=== PATIENT | female | born 1940 | race African-American/Black ===

== ENCOUNTER 2021-03-17 14:05 | Inpatient (IN) | payer MEDICARE, OTHER ==
[2021-03-17 16:09] LABS: Bilirubin Negative (Negative); Blood, Urine Negative (Negative); Clarity Clear (Clear); Glucose, Urine (Dipstick) Normal (Negative); Ketone, Urine Negative (Negative); Leukocyte 250 Leu/uL (Negative); Nitrite Negative (Negative); Protein, Urine (Dipstick) 10 mg/dL (Neg-Trace); RBC/HPF 0-3 HPF (0-3); Specific Gravity, Urine 1.013 (1.002-1.036); Squamous Epithelial 0-3 HPF (0-3); Urobilinogen Normal mg/dL (Less than 2)
[2021-03-17 16:13] LABS: Hemoglobin 10.8 g/dL (12.0-16.0); Mean Corpuscular HGB CONC 32.6 g/dL (32.0-36.0); Mean Corpuscular Hemoglobin 29.5 pg (27.0-31.0); Mean Corpuscular Volume 90.7 fL (78.0-98.0); Mean Platelet Volume 7.8 fL (7.4-10.4); Platelet Count 323 thou/uL (130-400); RBC Distribution Width 13.5 % (11.5-14.5); Red Blood Cell (RBC) Count 3.68 mill/uL (4.20-5.40); White Blood Cell (WBC) Count 5.9 thou/uL (4.8-10.8)
[2021-03-17 16:15] LABS: Bacteria/HPF 1+ HPF (None Seen)
[2021-03-17 16:31] LABS: ALT (SGPT) 32 U/L (8-55); AST (SGOT) 35 U/L (5-34); Albumin 4.1 g/dL (3.4-4.8); Alkaline Phosphatase 102 U/L (40-110); Anion Gap 14 mmol/L (10-20); BUN (Urea Nitrogen) 27 mg/dL (9.8-20.1); Bilirubin, Total 0.3 mg/dL (0.2-1.2); Calc. Creatinine Clearance 0 mL/min (70-130); Carbon Dioxide 24 mmol/L (23-31); Chloride 103 mmol/L (98-107); Globulin 4.4 g/dL (2.4-3.5); Glucose 61 mg/dL (83-110); Potassium 3.6 mmol/L (3.5-5.1); Protein, Total 8.5 g/dL (5.8-8.1); Sodium 137 mmol/L (136-145)
[2021-03-17 16:36] LABS: Band 9 % (5-11); Lymphocytes 23 % (21-51); MDiff Complete? YES; Monocytes 17 % (0-10); Neutrophil 51 % (42-75); Platelet Morphology Comment Appears Adequate; RBC Morphology Normal
[2021-03-17 16:40] LABS: Calcium 12.1 mg/dL (7.8-10.44)
[2021-03-17] MEDS ORDERED: cefTRIAXone\\ROCEPHIN 1 GM VIAL ONE (16:50)
[2021-03-17] MEDS ORDERED: Acetaminophen 325 MG TAB PO PRN (19:00)
[2021-03-17] MEDS ORDERED: Ondansetron PF 4 MG/2 ML Vial IVP PRN (19:00)
[2021-03-17] MEDS ORDERED: Dextrose 50% Abboject 50 ML SYRINGE SLOW IVP PRN (19:04)
[2021-03-17] MEDS ORDERED: Dextrose 5% in Water 1,000 ML IV PRN (19:04)
[2021-03-17] MEDS: Dextrose 5 %-0.45 % NaCl 1,000 ML IV SCH (19:58)
[2021-03-17 20:46] VITALS: BMI 23.6
[2021-03-17] MEDS ORDERED: Insulin Regular 300 UNITS/3 ML VIAL ONE (21:14)
[2021-03-17] MEDS: HumaLOG 300 UNITS/3 ML VIAL SC PRN (21:21)
[2021-03-18] MEDS: Dextrose 5 %-0.45 % NaCl 1,000 ML IV SCH (05:11)
[2021-03-18 05:17] LABS: Hemoglobin 9.8 g/dL (12.0-16.0); Mean Corpuscular HGB CONC 33.7 g/dL (32.0-36.0); Mean Corpuscular Hemoglobin 30.7 pg (27.0-31.0); Mean Corpuscular Volume 91.1 fL (78.0-98.0); Mean Platelet Volume 8.1 fL (7.4-10.4); Platelet Count 284 thou/uL (130-400); RBC Distribution Width 13.5 % (11.5-14.5); White Blood Cell (WBC) Count 6.1 thou/uL (4.8-10.8)
[2021-03-18 05:19] LABS: Hemoglobin A1c 5.1 % (4.0-6.0)
[2021-03-18 05:35] LABS: Anion Gap 13 mmol/L (10-20); BUN (Urea Nitrogen) 22 mg/dL (9.8-20.1); Calc. Creatinine Clearance 22 mL/min (70-130); Calcium 10.8 mg/dL (7.8-10.44); Carbon Dioxide 21 mmol/L (23-31); Chloride 108 mmol/L (98-107); Glucose 228 mg/dL (83-110); Potassium 3.9 mmol/L (3.5-5.1); Sodium 138 mmol/L (136-145)
[2021-03-18 05:45] LABS: Band 13 % (5-11); Eosinophils 4 % (0-10); Lymphocytes 27 % (21-51); MDiff Complete? YES; Monocytes 15 % (0-10); Neutrophil 41 % (42-75)
[2021-03-18] MEDS ORDERED: HumaLOG 300 UNITS/3 ML VIAL ONE (11:37)
[2021-03-18] MEDS: HumaLOG 300 UNITS/3 ML VIAL SC PRN (11:40)
[2021-03-18] MEDS ORDERED: Amlodipine 5 MG TAB PO SCH (15:30)
[2021-03-18] MEDS: Sodium Chloride 0.9% 1,000 ML IV SCH (21:14)
[2021-03-19] MEDS ORDERED: hydrALAZINE 20 MG/ML VIAL SLOW IVP PRN (05:14)
[2021-03-19 06:50] LABS: SARS-CoV-2 PCR by NAA Not Detected (NotDetected)
[2021-03-19] MEDS: HumaLOG 300 UNITS/3 ML VIAL SC PRN (11:32)
[2021-03-19] MEDS: Sodium Chloride 0.9% 1,000 ML IV SCH (11:39)
[2021-03-19 12:03] VITALS: BP 138/77; TEMP 98.3
[2021-03-19] MEDS ORDERED: Latanoprost 0.005% Ophth Soln 2.5 ml Bottle EA EYE SCH (21:00)
== END 2021-03-19 12:02 | disposition home or self-care (01) | DRG 638 ==
LOC: ERS 14:05 → ERHOLD 17:36 → T4-A 03-18 12:22 → OBSVTOIN 03-19 11:31
PROVIDERS: ADMIT Internal Medicine; ATTEND Internal Medicine
DX: E11.649 Type 2 diabetes mellitus with hypoglycemia without coma (principal); N39.0 Urinary tract infection, site not specified; E11.22 Type 2 diabetes mellitus with diabetic chronic kidney disease; N18.30 Chronic kidney disease, stage 3 unspecified; I12.9 Hypertensive chronic kidney disease with stage 1 through stage 4 chronic kidney disease, or unspecified chronic kidney disease; E87.8 Other disorders of electrolyte and fluid balance, not elsewhere classified; Z20.822 Contact with and (suspected) exposure to COVID-19; N17.9 Acute kidney failure, unspecified; E83.52 Hypercalcemia; Z90.710 Acquired absence of both cervix and uterus; Z91.14 Patient's other noncompliance with medication regimen; Z79.899 Other long term (current) drug therapy
CPT/HCPCS: 36415; 36416; 80048; 80053; 81003; 81015; 82330; 83036; 83970; 85025; 93005; 94760; 96365; 96375; G0378; J0360; J0696; J1815; U0003; U0005

== ENCOUNTER 2021-09-09 10:08 | Inpatient (IN) | payer MEDICARE ==
[2021-09-09 11:20] LABS: Hemoglobin 10.5 g/dL (12.0-16.0); Mean Corpuscular HGB CONC 33.5 g/dL (32.0-36.0); Mean Corpuscular Hemoglobin 29.3 pg (27.0-31.0); Mean Corpuscular Volume 87.6 fL (78.0-98.0); Mean Platelet Volume 8.6 fL (7.4-10.4); Platelet Count 244 thou/uL (130-400); RBC Distribution Width 14.4 % (11.5-14.5); Red Blood Cell (RBC) Count 3.57 mill/uL (4.20-5.40); White Blood Cell (WBC) Count 6.2 thou/uL (4.8-10.8)
[2021-09-09 11:36] LABS: Acetaminophen Less than 6.0 mcg/mL (10.0-30.0); Alcohol Less than 10 mg/dL (Less than 10); Salicylate Less than 8.0 mg/dL (15.0-30.0)
[2021-09-09 11:37] LABS: ALT (SGPT) 24 U/L (8-55); AST (SGOT) 31 U/L (5-34); Albumin 3.7 g/dL (3.4-4.8); Alkaline Phosphatase 148 U/L (40-110); Anion Gap 17 mmol/L (10-20); BUN (Urea Nitrogen) 37 mg/dL (9.8-20.1); Bilirubin, Total 0.7 mg/dL (0.2-1.2); CK (CPK) 63 U/L (29-168); Calc. Creatinine Clearance 0 mL/min (70-130); Carbon Dioxide 22 mmol/L (23-31); Chloride 101 mmol/L (98-107); Globulin 4.3 g/dL (2.4-3.5); Glucose 103 mg/dL (83-110); Magnesium 1.4 mg/dL (1.6-2.6); Potassium 3.3 mmol/L (3.5-5.1); Sodium 137 mmol/L (136-145)
[2021-09-09 11:45] LABS: Band 5 % (5-11); Eosinophils 2 % (0-10); Lymphocytes 19 % (21-51); MDiff Complete? YES; Monocytes 11 % (0-10); Neutrophil 61 % (42-75); Platelet Morphology Comment Appears Adequate; Polychromasia SLIGHT = 2-3 cells (100X) (0-2/hpf)
[2021-09-09 11:47] LABS: Calcium 15.6 mg/dL (7.8-10.44)
[2021-09-09 11:56] LABS: CKMB 2.9 ng/mL (0-6.6)
[2021-09-09 12:11] LABS: Bacteria/HPF None Seen HPF (None Seen); Bilirubin Negative (Negative); Blood, Urine Negative (Negative); Clarity Clear (Clear); Glucose, Urine (Dipstick) Normal (Negative); Ketone, Urine Negative (Negative); Leukocyte Negative Leu/uL (Negative); Nitrite Negative (Negative); Protein, Urine (Dipstick) 30 mg/dL (Neg-Trace); RBC/HPF 0-3 HPF (0-3); Specific Gravity, Urine 1.013 (1.002-1.036); Squamous Epithelial None Seen HPF (0-3); Urobilinogen Normal mg/dL (Less than 2); WBC/HPF 0-3 HPF (0-3)
[2021-09-09 12:16] LABS: Amphetamine Not Detected (NotDetected); Barbiturates Screen Not Detected (NotDetected); Benzodiazepine Screen Not Detected (NotDetected); Cocaine Metabolite Screen Not Detected (NotDetected); Methadone Not Detected (NotDetected); Methamphetamine Not Detected (NotDetected); Opiate Screen Not Detected (NotDetected); Oxycodone Screen Not Detected (NotDetected); Phencyclidine (PCP) Not Detected (NotDetected); THC/Cannabinoid Screen Not Detected (NotDetected); Tricyclic Screen Not Detected (NotDetected)
[2021-09-09] MEDS ORDERED: Calcitonin,Synthetic 200 UNITS/ML MDV IM SCH (12:30)
[2021-09-09] MEDS ORDERED: Dextrose 5% in Water 1,000 ML IV PRN (14:26)
[2021-09-09] MEDS ORDERED: Dextrose 50% Abboject 50 ML SYRINGE SLOW IVP PRN (14:26)
[2021-09-09] MEDS ORDERED: Acetaminophen 650 MG Suppository PR PRN (14:26)
[2021-09-09] MEDS: Heparin 5,000 UNITS/ML VIAL SC SCH ×2 (16:04→20:39)
[2021-09-09] MEDS ORDERED: Magnesium 2 GM/50 ML 2 GM in Premix Bag 1 BAG IVPB SCH (17:00)
[2021-09-09] MEDS ORDERED: Potassium Chloride 20 MEQ TAB PO SCH (17:00)
[2021-09-09] MEDS ORDERED: Furosemide 40 MG/4 ML VIAL SLOW IVP SCH (17:00)
[2021-09-09 17:56] LABS: Troponin I 0.035 ng/mL (< 0.028)
[2021-09-09] MEDS: hydrALAZINE 20 MG/ML VIAL SLOW IVP PRN (18:00)
[2021-09-09] MEDS: Lactated Ringer's 1,000 ML IV SCH (18:01)
[2021-09-09] MEDS ORDERED: Ondansetron PF 4 MG/2 ML Vial IVP PRN (19:10)
[2021-09-09] MEDS ORDERED: Ondansetron ODT 8 MG TAB SL PRN (19:10)
[2021-09-09] MEDS ORDERED: Zoledronic Acid 4 MG in Sodium Chloride 0.9% 100 ML IVPB SCH (19:30)
[2021-09-09 19:41] LABS: SARS-CoV-2 NAA Rapid Test Not Detected (NotDetected)
[2021-09-10] MEDS: hydrALAZINE 20 MG/ML VIAL SLOW IVP PRN ×2 (02:08→18:17)
[2021-09-10 03:42] LABS: #Monocytes 0.7 thou/uL (0.11-0.59); #Neutrophils 6.7 thou/uL (1.40-6.50); %Basophils 0.3 % (0.0-1.0); %Eosinophils 0.1 % (0.0-10.0); %Lymphocytes 11.8 % (21.0-51.0); %Monocytes 8.5 % (0.0-10.0); %Neutrophils 79.4 % (42.0-75.0); Hemoglobin 10.5 g/dL (12.0-16.0); Mean Corpuscular Hemoglobin 29.7 pg (27.0-31.0); Mean Corpuscular Volume 87.4 fL (78.0-98.0); Mean Platelet Volume 8.7 fL (7.4-10.4); Platelet Count 261 thou/uL (130-400); RBC Distribution Width 14.5 % (11.5-14.5); Red Blood Cell (RBC) Count 3.54 mill/uL (4.20-5.40); White Blood Cell (WBC) Count 8.4 thou/uL (4.8-10.8)
[2021-09-10 04:08] LABS: ALT (SGPT) 20 U/L (8-55); AST (SGOT) 28 U/L (5-34); Albumin 3.5 g/dL (3.4-4.8); Alkaline Phosphatase 141 U/L (40-110); Anion Gap 19 mmol/L (10-20); BUN (Urea Nitrogen) 34 mg/dL (9.8-20.1); Bilirubin, Total 0.7 mg/dL (0.2-1.2); Calc. Creatinine Clearance 13 mL/min (70-130); Carbon Dioxide 21 mmol/L (23-31); Chloride 102 mmol/L (98-107); Globulin 4.2 g/dL (2.4-3.5); Glucose 146 mg/dL (83-110); Magnesium 2.1 mg/dL (1.6-2.6); Potassium 3.6 mmol/L (3.5-5.1); Protein, Total 7.7 g/dL (5.8-8.1); Sodium 138 mmol/L (136-145)
[2021-09-10] MEDS: Lactated Ringer's 1,000 ML IV SCH ×2 (08:13→16:23)
[2021-09-10] MEDS: Heparin 5,000 UNITS/ML VIAL SC SCH ×3 (08:13→20:02)
[2021-09-10] MEDS ORDERED: Amlodipine 5 MG TAB PO SCH ×2 (09:45)
[2021-09-10] MEDS: ADMIXTURE FEE SC SCH (11:35)
[2021-09-10] MEDS: CALCITONIN SALMON SYNTHETIC SC SCH (11:35)
[2021-09-10] MEDS: Calcitonin,Synthetic 200 UNITS/ML MDV SC SCH (13:07)
[2021-09-10 14:33] LABS: Phosphorus 2.9 mg/dL (2.3-4.7)
[2021-09-10 17:10] LABS: Reference Lab Name LABCORP
[2021-09-10] MEDS: Latanoprost 0.005% Ophth Soln 2.5 ml Bottle EA EYE SCH (20:03)
[2021-09-11] MEDS: Lactated Ringer's 1,000 ML IV SCH ×3 (02:55→20:24)
[2021-09-11] MEDS: Calcitonin,Synthetic 200 UNITS/ML MDV SC SCH (07:22)
[2021-09-11] MEDS: Heparin 5,000 UNITS/ML VIAL SC SCH ×3 (07:22→20:25)
[2021-09-11] MEDS: Amlodipine 10 MG TAB PO SCH (07:24)
[2021-09-11] MEDS ORDERED: Amlodipine 5 MG TAB PO SCH (09:00)
[2021-09-11 10:24] LABS: Anion Gap 14 mmol/L (10-20); BUN (Urea Nitrogen) 31 mg/dL (9.8-20.1); Calc. Creatinine Clearance 15 mL/min (70-130); Carbon Dioxide 24 mmol/L (23-31); Chloride 103 mmol/L (98-107); Glucose 94 mg/dL (83-110); Magnesium 1.5 mg/dL (1.6-2.6); Phosphorus 2.6 mg/dL (2.3-4.7); Potassium 3.5 mmol/L (3.5-5.1); Sodium 137 mmol/L (136-145)
[2021-09-11] MEDS: ADMIXTURE FEE SC SCH (10:47)
[2021-09-11] MEDS: CALCITONIN SALMON SYNTHETIC SC SCH (10:47)
[2021-09-11] MEDS: Furosemide 20 MG/2 ML VIAL SLOW IVP SCH (10:48)
[2021-09-11 10:49] LABS: Calcium 13.7 mg/dL (7.8-10.44)
[2021-09-11 19:36] LABS: A/G Ratio 0.8 (0.7-1.7); Albumin 3.2 g/dL (2.9-4.4); Alpha 1 0.3 g/dL (0.0-0.4); Alpha 2 0.7 g/dL (0.4-1.0); Beta 1.3 g/dL (0.7-1.3); Gamma 1.6 g/dL (0.4-1.8); M-Spike Not Observed g/dL (Not Observed)
[2021-09-11] MEDS: Latanoprost 0.005% Ophth Soln 2.5 ml Bottle EA EYE SCH (20:25)
[2021-09-12 05:37] LABS: Anion Gap 14 mmol/L (10-20); BUN (Urea Nitrogen) 31 mg/dL (9.8-20.1); Calc. Creatinine Clearance 15 mL/min (70-130); Carbon Dioxide 22 mmol/L (23-31); Chloride 102 mmol/L (98-107); Glucose 83 mg/dL (83-110); Potassium 3.3 mmol/L (3.5-5.1); Sodium 135 mmol/L (136-145)
[2021-09-12] MEDS ORDERED: CALCITONIN SALMON SYNTHETIC SC SCH (09:00)
[2021-09-12] MEDS ORDERED: PRE FILLED SC SCH (09:00)
[2021-09-12] MEDS: Potassium Chloride 20 MEQ in Premix Bag 1 BAG IVPB SCH ×2 (10:14→14:36)
[2021-09-12] MEDS: Heparin 5,000 UNITS/ML VIAL SC SCH ×3 (10:15→21:22)
[2021-09-12] MEDS: Furosemide 20 MG/2 ML VIAL SLOW IVP SCH (10:15)
[2021-09-12] MEDS: Amlodipine 10 MG TAB PO SCH (10:16)
[2021-09-12] MEDS: Lactated Ringer's 1,000 ML IV SCH ×2 (11:04→21:22)
[2021-09-12] MEDS: hydrALAZINE 20 MG/ML VIAL SLOW IVP PRN (15:39)
[2021-09-12] MEDS: Latanoprost 0.005% Ophth Soln 2.5 ml Bottle EA EYE SCH (21:22)
[2021-09-13 05:40] LABS: ALT (SGPT) 19 U/L (8-55); AST (SGOT) 29 U/L (5-34); Albumin 3.1 g/dL (3.4-4.8); Alkaline Phosphatase 117 U/L (40-110); Anion Gap 16 mmol/L (10-20); BUN (Urea Nitrogen) 33 mg/dL (9.8-20.1); Bilirubin, Total 0.6 mg/dL (0.2-1.2); Calc. Creatinine Clearance 15 mL/min (70-130); Carbon Dioxide 21 mmol/L (23-31); Chloride 103 mmol/L (98-107); Glucose 66 mg/dL (83-110); Magnesium 1.3 mg/dL (1.6-2.6); Phosphorus 2.9 mg/dL (2.3-4.7); Potassium 3.7 mmol/L (3.5-5.1); Protein, Total 7.1 g/dL (5.8-8.1); Sodium 136 mmol/L (136-145)
[2021-09-13 05:47] LABS: Calcium 12.4 mg/dL (7.8-10.44)
[2021-09-13] MEDS ORDERED: Magnesium 2 GM/50 ML 2 GM in Premix Bag 1 BAG IVPB SCH (09:00)
[2021-09-13] MEDS ORDERED: Magnesium Sulfate 2 GM in Sodium Chloride 0.9% 100 ML IVPB SCH (09:00)
[2021-09-13] MEDS: Amlodipine 10 MG TAB PO SCH (09:40)
[2021-09-13] MEDS: Furosemide 20 MG/2 ML VIAL SLOW IVP SCH (09:40)
[2021-09-13] MEDS: Heparin 5,000 UNITS/ML VIAL SC SCH ×3 (09:40→20:20)
[2021-09-13] MEDS: Lactated Ringer's 1,000 ML IV SCH ×2 (10:09→20:20)
[2021-09-13] MEDS: Calcitonin,Synthetic 200 UNITS/ML MDV SC SCH (10:18)
[2021-09-13 10:43] LABS: Band 7 % (5-11); Eosinophils 2 % (0-10); Hemoglobin 11.1 g/dL (12.0-16.0); Lymphocytes 17 % (21-51); MDiff Complete? YES; Mean Corpuscular HGB CONC 33.6 g/dL (32.0-36.0); Mean Corpuscular Hemoglobin 29.9 pg (27.0-31.0); Mean Corpuscular Volume 89.1 fL (78.0-98.0); Mean Platelet Volume 8.3 fL (7.4-10.4); Monocytes 9 % (0-10); Neutrophil 65 % (42-75); Platelet Count 241 thou/uL (130-400); RBC Distribution Width 14.7 % (11.5-14.5); White Blood Cell (WBC) Count 11.2 thou/uL (4.8-10.8)
[2021-09-13] MEDS: Latanoprost 0.005% Ophth Soln 2.5 ml Bottle EA EYE SCH (20:20)
[2021-09-14] MEDS: Furosemide 20 MG/2 ML VIAL SLOW IVP SCH (09:44)
[2021-09-14] MEDS: Lactated Ringer's 1,000 ML IV SCH ×2 (09:44→21:11)
[2021-09-14] MEDS: Amlodipine 10 MG TAB PO SCH (09:44)
[2021-09-14] MEDS: Heparin 5,000 UNITS/ML VIAL SC SCH ×3 (09:44→21:04)
[2021-09-14] MEDS: Calcitonin,Synthetic 200 UNITS/ML MDV SC SCH (09:45)
[2021-09-14 17:27] LABS: ALT (SGPT) 21 U/L (8-55); AST (SGOT) 28 U/L (5-34); Albumin 3.2 g/dL (3.4-4.8); Alkaline Phosphatase 131 U/L (40-110); Anion Gap 14 mmol/L (10-20); BUN (Urea Nitrogen) 33 mg/dL (9.8-20.1); Bilirubin, Total 0.4 mg/dL (0.2-1.2); Calc. Creatinine Clearance 17 mL/min (70-130); Carbon Dioxide 24 mmol/L (23-31); Chloride 98 mmol/L (98-107); Globulin 4.1 g/dL (2.4-3.5); Glucose 99 mg/dL (83-110); Magnesium 1.5 mg/dL (1.6-2.6); Potassium 3.4 mmol/L (3.5-5.1); Protein, Total 7.3 g/dL (5.8-8.1); Sodium 133 mmol/L (136-145)
[2021-09-14 17:37] LABS: Calcium 13.2 mg/dL (7.8-10.44)
[2021-09-14] MEDS ORDERED: Magnesium Sulfate 2 GM in Sodium Chloride 0.9% 100 ML IVPB SCH (17:45)
[2021-09-14] MEDS ORDERED: Potassium Chloride 20 MEQ TAB PO SCH (17:45)
[2021-09-14] MEDS ORDERED: Magnesium 2 GM/50 ML 2 GM in Premix Bag 1 BAG IVPB SCH (18:00)
[2021-09-14] MEDS: Latanoprost 0.005% Ophth Soln 2.5 ml Bottle EA EYE SCH (22:09)
[2021-09-15 05:02] LABS: Phosphorus 2.7 mg/dL (2.3-4.7)
[2021-09-15 05:07] LABS: ALT (SGPT) 23 U/L (8-55); AST (SGOT) 29 U/L (5-34); Albumin 3.1 g/dL (3.4-4.8); Alkaline Phosphatase 128 U/L (40-110); Anion Gap 11 mmol/L (10-20); BUN (Urea Nitrogen) 32 mg/dL (9.8-20.1); Bilirubin, Total 0.4 mg/dL (0.2-1.2); Calc. Creatinine Clearance 16 mL/min (70-130); Carbon Dioxide 26 mmol/L (23-31); Chloride 101 mmol/L (98-107); Globulin 3.9 g/dL (2.4-3.5); Glucose 104 mg/dL (83-110); Potassium 3.8 mmol/L (3.5-5.1); Sodium 134 mmol/L (136-145)
[2021-09-15 05:18] LABS: Calcium 12.9 mg/dL (7.8-10.44)
[2021-09-15] MEDS: Furosemide 20 MG/2 ML VIAL SLOW IVP SCH (08:35)
[2021-09-15] MEDS: Amlodipine 10 MG TAB PO SCH (08:36)
[2021-09-15] MEDS: Lactated Ringer's 1,000 ML IV SCH ×2 (08:39→17:55)
[2021-09-15] MEDS: Heparin 5,000 UNITS/ML VIAL SC SCH ×3 (08:42→20:20)
[2021-09-15] MEDS ORDERED: PRE FILLED SC SCH (09:00)
[2021-09-15] MEDS ORDERED: CALCITONIN SALMON SYNTHETIC SC SCH (09:00)
[2021-09-15 18:37] LABS: Albumin-Ur 50.1 % (.); Alpha 1 - Ur 6.3 % (.); Alpha 2 - Ur 14.2 % (.); Beta-Ur 18.6 % (.); Gamma-Ur 10.9 % (.); M-Spike,% Not Observed % (Not Observed); Protein, Urine 22.9 mg/dL (Not Estab.)
[2021-09-15] MEDS: Latanoprost 0.005% Ophth Soln 2.5 ml Bottle EA EYE SCH (20:20)
[2021-09-16] MEDS ORDERED: Magnevist 469MG/ML 20 ML VIAL ONE (08:55)
[2021-09-16] MEDS: Amlodipine 10 MG TAB PO SCH (09:32)
[2021-09-16] MEDS: Furosemide 20 MG/2 ML VIAL SLOW IVP SCH (09:33)
[2021-09-16] MEDS: Heparin 5,000 UNITS/ML VIAL SC SCH ×3 (09:34→20:09)
[2021-09-16] MEDS: Lactated Ringer's 1,000 ML IV SCH (09:38)
[2021-09-16 13:14] LABS: ALT (SGPT) 43 U/L (8-55); AST (SGOT) 52 U/L (5-34); Albumin 3.5 g/dL (3.4-4.8); Alkaline Phosphatase 159 U/L (40-110); Anion Gap 14 mmol/L (10-20); BUN (Urea Nitrogen) 41 mg/dL (9.8-20.1); Bilirubin, Total 1.5 mg/dL (0.2-1.2); Calc. Creatinine Clearance 14 mL/min (70-130); Carbon Dioxide 26 mmol/L (23-31); Chloride 99 mmol/L (98-107); Globulin 3.9 g/dL (2.4-3.5); Glucose 133 mg/dL (83-110); Magnesium 1.6 mg/dL (1.6-2.6); Potassium 3.6 mmol/L (3.5-5.1); Protein, Total 7.4 g/dL (5.8-8.1); Sodium 135 mmol/L (136-145)
[2021-09-16 13:21] LABS: Calcium 14.3 mg/dL (7.8-10.44); Phosphorus 3.6 mg/dL (2.3-4.7)
[2021-09-16 13:31] LABS: Band 8 % (5-11); Burr Cells SLIGHT = 2-5 cells (100X) (0-1/hpf); Eosinophils 1 % (0-10); Hemoglobin 10.5 g/dL (12.0-16.0); Lymphocytes 14 % (21-51); MDiff Complete? YES; Mean Corpuscular HGB CONC 33.1 g/dL (32.0-36.0); Mean Corpuscular Hemoglobin 29.5 pg (27.0-31.0); Mean Corpuscular Volume 89.3 fL (78.0-98.0); Mean Platelet Volume 8.4 fL (7.4-10.4); Metamyelocyte 2 % (0-0); Monocytes 10 % (0-10); Neutrophil 65 % (42-75); Platelet Count 314 thou/uL (130-400); Platelet Morphology Comment Appears Adequate; Polychromasia SLIGHT = 2-3 cells (100X) (0-2/hpf); RBC Distribution Width 14.4 % (11.5-14.5); Red Blood Cell (RBC) Count 3.55 mill/uL (4.20-5.40); White Blood Cell (WBC) Count 8.7 thou/uL (4.8-10.8)
[2021-09-16] MEDS: Latanoprost 0.005% Ophth Soln 2.5 ml Bottle EA EYE SCH (20:11)
[2021-09-16] MEDS: Sodium Chloride 0.9% 1,000 ML IV SCH (20:54)
[2021-09-17 05:43] LABS: Phosphorus 3.1 mg/dL (2.3-4.7)
[2021-09-17 05:51] LABS: AST (SGOT) 47 U/L (5-34); Anion Gap 12 mmol/L (10-20); Bilirubin, Total 0.7 mg/dL (0.2-1.2); Calc. Creatinine Clearance 15 mL/min (70-130); Carbon Dioxide 23 mmol/L (23-31); Chloride 104 mmol/L (98-107); Globulin 4.2 g/dL (2.4-3.5); Glucose 90 mg/dL (83-110); Potassium 3.8 mmol/L (3.5-5.1); Protein, Total 7.2 g/dL (5.8-8.1); Sodium 135 mmol/L (136-145)
[2021-09-17 06:13] LABS: Calcium 13.4 mg/dL (7.8-10.44)
[2021-09-17 06:37] LABS: Alkaline Phosphatase 146 U/L (40-110)
[2021-09-17 06:38] LABS: BUN (Urea Nitrogen) 39 mg/dL (9.8-20.1)
[2021-09-17 06:40] LABS: ALT (SGPT) 41 U/L (8-55); Magnesium 1.4 mg/dL (1.6-2.6)
[2021-09-17] MEDS ORDERED: Zoledronic Acid 4 MG in Sodium Chloride 0.9% 100 ML IVPB SCH (09:00)
[2021-09-17] MEDS ORDERED: Calcitonin,Synthetic 200 UNITS/ML MDV SC SCH (09:00)
[2021-09-17] MEDS: PRE FILLED SC SCH ×2 (09:26→21:41)
[2021-09-17] MEDS: CALCITONIN SALMON SYNTHETIC SC SCH ×2 (09:26→21:41)
[2021-09-17] MEDS: Amlodipine 10 MG TAB PO SCH (09:27)
[2021-09-17] MEDS: Heparin 5,000 UNITS/ML VIAL SC SCH ×3 (09:34→21:32)
[2021-09-17] MEDS ORDERED: Magnesium 2 GM/50 ML 2 GM in Premix Bag 1 BAG IVPB SCH (14:45)
[2021-09-17 15:27] LABS: SARS-CoV-2 PCR by NAA Not Detected (NotDetected)
[2021-09-17] MEDS: Sodium Chloride 0.9% 1,000 ML IV SCH (16:37)
[2021-09-17] MEDS: Carvedilol 6.25 MG TAB PO SCH (18:46)
[2021-09-17] MEDS: Latanoprost 0.005% Ophth Soln 2.5 ml Bottle EA EYE SCH (21:41)
[2021-09-18 05:09] LABS: ALT (SGPT) 38 U/L (8-55); AST (SGOT) 40 U/L (5-34); Albumin 2.9 g/dL (3.4-4.8); Alkaline Phosphatase 143 U/L (40-110); Anion Gap 12 mmol/L (10-20); BUN (Urea Nitrogen) 29 mg/dL (9.8-20.1); Bilirubin, Total 0.4 mg/dL (0.2-1.2); Calc. Creatinine Clearance 17 mL/min (70-130); Calcium 11.6 mg/dL (7.8-10.44); Carbon Dioxide 20 mmol/L (23-31); Chloride 105 mmol/L (98-107); Globulin 3.6 g/dL (2.4-3.5); Glucose 94 mg/dL (83-110); Magnesium 1.6 mg/dL (1.6-2.6); Potassium 3.1 mmol/L (3.5-5.1); Protein, Total 6.5 g/dL (5.8-8.1); Sodium 134 mmol/L (136-145)
[2021-09-18 05:38] LABS: Phosphorus 2.3 mg/dL (2.3-4.7)
[2021-09-18] MEDS: Amlodipine 10 MG TAB PO SCH (09:12)
[2021-09-18] MEDS: Carvedilol 6.25 MG TAB PO SCH (09:12)
[2021-09-18] MEDS: Heparin 5,000 UNITS/ML VIAL SC SCH ×3 (09:13→20:46)
[2021-09-18] MEDS ORDERED: Potassium Chloride 40 MEQ in Sodium Chloride 0.9% 250 ML 250 ML IVPB SCH (09:30)
[2021-09-18] MEDS: Furosemide 20 MG/2 ML VIAL SLOW IVP SCH (10:35)
[2021-09-18] MEDS: Latanoprost 0.005% Ophth Soln 2.5 ml Bottle EA EYE SCH (22:32)
[2021-09-19 00:36] LABS: QuantiFERON-TB Gold Plus Negative (Negative)
[2021-09-19 04:49] LABS: ALT (SGPT) 38 U/L (8-55); AST (SGOT) 35 U/L (5-34); Albumin 3.1 g/dL (3.4-4.8); Alkaline Phosphatase 179 U/L (40-110); Anion Gap 11 mmol/L (10-20); BUN (Urea Nitrogen) 31 mg/dL (9.8-20.1); Bilirubin, Total 0.4 mg/dL (0.2-1.2); Calc. Creatinine Clearance 17 mL/min (70-130); Carbon Dioxide 24 mmol/L (23-31); Chloride 101 mmol/L (98-107); Globulin 3.9 g/dL (2.4-3.5); Glucose 98 mg/dL (83-110); Potassium 3.3 mmol/L (3.5-5.1); Sodium 133 mmol/L (136-145)
[2021-09-19 04:53] LABS: Calcium 12.6 mg/dL (7.8-10.44)
[2021-09-19] MEDS: Amlodipine 10 MG TAB PO SCH (09:36)
[2021-09-19] MEDS: Heparin 5,000 UNITS/ML VIAL SC SCH ×3 (09:36→20:14)
[2021-09-19] MEDS: Furosemide 20 MG/2 ML VIAL SLOW IVP SCH (09:36)
[2021-09-19] MEDS: Sodium Chloride 0.9% 1,000 ML IV SCH (09:37)
[2021-09-19] MEDS ORDERED: Potassium Chloride 20 MEQ in Premix Bag 2 BAG IVPB SCH (10:15)
[2021-09-19] MEDS ORDERED: Calcitonin,Synthetic 200 UNITS/ML MDV SC SCH ×2 (11:00→21:00)
[2021-09-19] MEDS: Potassium Chloride 20 MEQ in Premix Bag 2 BAG IVPB SCH ×2 (12:51→15:59)
[2021-09-19] MEDS ORDERED: Cinacalcet HCl 30 MG TAB PO SCH (13:45)
[2021-09-19] MEDS: Latanoprost 0.005% Ophth Soln 2.5 ml Bottle EA EYE SCH (20:15)
[2021-09-19] MEDS: Acetaminophen 325 MG TAB PO PRN (20:32)
[2021-09-20 04:39] LABS: ALT (SGPT) 41 U/L (8-55); AST (SGOT) 36 U/L (5-34); Albumin 3.2 g/dL (3.4-4.8); Alkaline Phosphatase 200 U/L (40-110); Anion Gap 11 mmol/L (10-20); BUN (Urea Nitrogen) 30 mg/dL (9.8-20.1); Bilirubin, Total 0.4 mg/dL (0.2-1.2); Calc. Creatinine Clearance 16 mL/min (70-130); Carbon Dioxide 25 mmol/L (23-31); Chloride 102 mmol/L (98-107); Globulin 4.1 g/dL (2.4-3.5); Glucose 113 mg/dL (83-110); Phosphorus 3.1 mg/dL (2.3-4.7); Potassium 3.6 mmol/L (3.5-5.1); Protein, Total 7.3 g/dL (5.8-8.1); Sodium 134 mmol/L (136-145)
[2021-09-20 04:42] LABS: Calcium 13.4 mg/dL (7.8-10.44)
[2021-09-20] MEDS ORDERED: Insulin Regular 300 UNITS/3 ML VIAL SC PRN (06:27)
[2021-09-20] MEDS ORDERED: HumaLOG 300 UNITS/3 ML VIAL SC PRN ×2 (06:27→06:45)
[2021-09-20] MEDS ORDERED: predniSONE 20 MG TAB PO SCH (06:30)
[2021-09-20] MEDS: Cinacalcet HCl 30 MG TAB PO SCH (09:40)
[2021-09-20] MEDS: Furosemide 20 MG/2 ML VIAL SLOW IVP SCH (09:41)
[2021-09-20] MEDS: Heparin 5,000 UNITS/ML VIAL SC SCH ×3 (09:49→21:07)
[2021-09-20] MEDS: Amlodipine 10 MG TAB PO SCH (09:49)
[2021-09-20] MEDS ORDERED: Senokot S 8.6-50 MG TAB PO SCH (14:30)
[2021-09-20] MEDS: Latanoprost 0.005% Ophth Soln 2.5 ml Bottle EA EYE SCH (21:06)
[2021-09-20] MEDS: Senokot S 8.6-50 MG TAB PO SCH (21:07)
[2021-09-20] MEDS: Sodium Chloride 0.9% 1,000 ML IV SCH (21:12)
[2021-09-21] MEDS: Lactated Ringer's 1,000 ML IV SCH (00:54)
[2021-09-21 05:06] LABS: Phosphorus 3.3 mg/dL (2.3-4.7)
[2021-09-21 05:09] LABS: ALT (SGPT) 41 U/L (8-55); AST (SGOT) 32 U/L (5-34); Albumin 3.1 g/dL (3.4-4.8); Alkaline Phosphatase 190 U/L (40-110); Anion Gap 13 mmol/L (10-20); BUN (Urea Nitrogen) 34 mg/dL (9.8-20.1); Bilirubin, Total 0.3 mg/dL (0.2-1.2); Calc. Creatinine Clearance 15 mL/min (70-130); Carbon Dioxide 21 mmol/L (23-31); Chloride 102 mmol/L (98-107); Glucose 133 mg/dL (83-110); Potassium 3.6 mmol/L (3.5-5.1); Protein, Total 7.1 g/dL (5.8-8.1); Sodium 132 mmol/L (136-145)
[2021-09-21 05:15] LABS: Calcium 13.1 mg/dL (7.8-10.44)
[2021-09-21] MEDS ORDERED: NIFEdipine XL 30 MG TAB PO SCH (09:00)
[2021-09-21] MEDS ORDERED: Bisacodyl 5 MG TAB PO SCH (09:00)
[2021-09-21] MEDS: NIFEdipine XL 90 MG TAB PO SCH (09:29)
[2021-09-21] MEDS: Acetaminophen 325 MG TAB PO PRN (09:31)
[2021-09-21] MEDS: Cinacalcet HCl 30 MG TAB PO SCH (09:33)
[2021-09-21] MEDS: Senokot S 8.6-50 MG TAB PO SCH ×2 (09:34→20:09)
[2021-09-21] MEDS: Heparin 5,000 UNITS/ML VIAL SC SCH ×3 (09:35→20:09)
[2021-09-21] MEDS: Furosemide 20 MG/2 ML VIAL SLOW IVP SCH (09:35)
[2021-09-21] MEDS ORDERED: predniSONE 20 MG TAB PO SCH (11:30)
[2021-09-21] MEDS: Albumin 25% 25 GM/100 ML BOT IVPB SCH ×2 (11:32→18:36)
[2021-09-21] MEDS: Latanoprost 0.005% Ophth Soln 2.5 ml Bottle EA EYE SCH (20:09)
[2021-09-21] MEDS: HumaLOG 300 UNITS/3 ML VIAL SC PRN (21:17)
[2021-09-22] MEDS: Acetaminophen 325 MG TAB PO PRN ×2 (00:14→15:26)
[2021-09-22] MEDS: Albumin 25% 25 GM/100 ML BOT IVPB SCH ×2 (00:15→05:09)
[2021-09-22] MEDS ORDERED: Gabapentin 100 MG CAP PO SCH (01:45)
[2021-09-22] MEDS: Sodium Chloride 0.9% 1,000 ML IV SCH ×3 (02:33→21:02)
[2021-09-22 05:14] LABS: ALT (SGPT) 40 U/L (8-55); AST (SGOT) 33 U/L (5-34); Albumin 4.5 g/dL (3.4-4.8); Alkaline Phosphatase 143 U/L (40-110); Anion Gap 12 mmol/L (10-20); BUN (Urea Nitrogen) 34 mg/dL (9.8-20.1); Bilirubin, Total 0.4 mg/dL (0.2-1.2); Calc. Creatinine Clearance 15 mL/min (70-130); Calcium 15.4 mg/dL (7.8-10.44); Carbon Dioxide 26 mmol/L (23-31); Chloride 99 mmol/L (98-107); Globulin 3.4 g/dL (2.4-3.5); Glucose 158 mg/dL (83-110); Phosphorus 2.8 mg/dL (2.3-4.7); Potassium 3.3 mmol/L (3.5-5.1); Protein, Total 7.9 g/dL (5.8-8.1); Sodium 134 mmol/L (136-145)
[2021-09-22] MEDS ORDERED: predniSONE 20 MG TAB PO SCH (08:00)
[2021-09-22] MEDS: Cinacalcet HCl 30 MG TAB PO SCH (08:41)
[2021-09-22] MEDS: Heparin 5,000 UNITS/ML VIAL SC SCH ×3 (08:42→21:03)
[2021-09-22] MEDS: Furosemide 20 MG/2 ML VIAL SLOW IVP SCH (08:42)
[2021-09-22] MEDS: NIFEdipine XL 90 MG TAB PO SCH (08:42)
[2021-09-22] MEDS: Senokot S 8.6-50 MG TAB PO SCH ×2 (08:42→21:02)
[2021-09-22] MEDS: predniSONE 20 MG TAB PO SCH (08:42)
[2021-09-22] MEDS: Latanoprost 0.005% Ophth Soln 2.5 ml Bottle EA EYE SCH (21:04)
[2021-09-23] MEDS: Sodium Chloride 0.9% 1,000 ML IV SCH ×2 (05:23→16:21)
[2021-09-23 05:34] LABS: Phosphorus 2.8 mg/dL (2.3-4.7)
[2021-09-23 05:36] LABS: ALT (SGPT) 30 U/L (8-55); AST (SGOT) 23 U/L (5-34); Albumin 3.9 g/dL (3.4-4.8); Alkaline Phosphatase 122 U/L (40-110); Anion Gap 13 mmol/L (10-20); BUN (Urea Nitrogen) 42 mg/dL (9.8-20.1); Bilirubin, Total 0.4 mg/dL (0.2-1.2); Calc. Creatinine Clearance 17 mL/min (70-130); Carbon Dioxide 23 mmol/L (23-31); Chloride 103 mmol/L (98-107); Globulin 3.2 g/dL (2.4-3.5); Glucose 110 mg/dL (83-110); Potassium 3.1 mmol/L (3.5-5.1); Protein, Total 7.1 g/dL (5.8-8.1); Sodium 136 mmol/L (136-145)
[2021-09-23 05:44] LABS: Critical Call Chemistry 2NO.AB1
[2021-09-23] MEDS ORDERED: Potassium Chloride 20 MEQ TAB PO SCH ×2 (08:00→12:15)
[2021-09-23] MEDS: NIFEdipine XL 90 MG TAB PO SCH (10:40)
[2021-09-23] MEDS: Furosemide 20 MG/2 ML VIAL SLOW IVP SCH (10:40)
[2021-09-23] MEDS: Cinacalcet HCl 30 MG TAB PO SCH (10:40)
[2021-09-23] MEDS: Senokot S 8.6-50 MG TAB PO SCH ×2 (10:40→21:54)
[2021-09-23] MEDS: Heparin 5,000 UNITS/ML VIAL SC SCH ×3 (10:41→21:54)
[2021-09-23] MEDS: predniSONE 20 MG TAB PO SCH (10:41)
[2021-09-23] MEDS: hydrALAZINE 20 MG/ML VIAL SLOW IVP PRN (12:30)
[2021-09-23 14:10] LABS: Magnesium 1.4 mg/dL (1.6-2.6)
[2021-09-23] MEDS ORDERED: Magnesium 2 GM/50 ML 2 GM in Premix Bag 1 BAG IVPB SCH (15:45)
[2021-09-23] MEDS: Latanoprost 0.005% Ophth Soln 2.5 ml Bottle EA EYE SCH (21:54)
[2021-09-24] MEDS: Sodium Chloride 0.9% 1,000 ML IV SCH ×4 (03:14→21:44)
[2021-09-24 04:59] LABS: #Eosinphils 0.1 thou/uL (0.0-0.7); #Lymphocytes 0.8 thou/uL (1.20-3.40); #Monocytes 0.5 thou/uL (0.11-0.59); #Neutrophils 14.2 thou/uL (1.40-6.50); %Basophils 0.3 % (0.0-1.0); %Eosinophils 0.5 % (0.0-10.0); %Lymphocytes 5.3 % (21.0-51.0); %Monocytes 3.5 % (0.0-10.0); %Neutrophils 90.5 % (42.0-75.0); Hemoglobin 8.2 g/dL (12.0-16.0); Mean Corpuscular HGB CONC 34.7 g/dL (32.0-36.0); Mean Corpuscular Hemoglobin 30.9 pg (27.0-31.0); Mean Corpuscular Volume 89.1 fL (78.0-98.0); Mean Platelet Volume 9.5 fL (7.4-10.4); Platelet Count 298 thou/uL (130-400); Red Blood Cell (RBC) Count 2.66 mill/uL (4.20-5.40); White Blood Cell (WBC) Count 15.6 thou/uL (4.8-10.8)
[2021-09-24 05:20] LABS: ALT (SGPT) 30 U/L (8-55); AST (SGOT) 21 U/L (5-34); Albumin 3.6 g/dL (3.4-4.8); Alkaline Phosphatase 114 U/L (40-110); Anion Gap 11 mmol/L (10-20); BUN (Urea Nitrogen) 44 mg/dL (9.8-20.1); Bilirubin, Total 0.4 mg/dL (0.2-1.2); Calc. Creatinine Clearance 18 mL/min (70-130); Carbon Dioxide 23 mmol/L (23-31); Chloride 106 mmol/L (98-107); Globulin 3.3 g/dL (2.4-3.5); Glucose 126 mg/dL (83-110); Potassium 4.2 mmol/L (3.5-5.1); Protein, Total 6.9 g/dL (5.8-8.1); Sodium 136 mmol/L (136-145)
[2021-09-24 05:26] LABS: Calcium 13.4 mg/dL (7.8-10.44); Phosphorus 2.7 mg/dL (2.3-4.7)
[2021-09-24] MEDS: predniSONE 20 MG TAB PO SCH (09:25)
[2021-09-24] MEDS: NIFEdipine XL 90 MG TAB PO SCH (09:26)
[2021-09-24] MEDS: Heparin 5,000 UNITS/ML VIAL SC SCH ×3 (09:26→21:41)
[2021-09-24] MEDS: Furosemide 20 MG/2 ML VIAL SLOW IVP SCH (09:26)
[2021-09-24] MEDS: Senokot S 8.6-50 MG TAB PO SCH ×2 (09:26→21:42)
[2021-09-24] MEDS: hydrALAZINE 20 MG/ML VIAL SLOW IVP PRN (10:07)
[2021-09-24] MEDS ORDERED: Polyethylene Glycol 3350 17 GM Packet PO PRN (13:23)
[2021-09-24] MEDS: Latanoprost 0.005% Ophth Soln 2.5 ml Bottle EA EYE SCH (21:42)
[2021-09-25 04:39] LABS: #Eosinphils 0.1 thou/uL (0.0-0.7); #Monocytes 1.1 thou/uL (0.11-0.59); #Neutrophils 9.7 thou/uL (1.40-6.50); %Basophils 0.2 % (0.0-1.0); %Eosinophils 0.6 % (0.0-10.0); %Lymphocytes 8.3 % (21.0-51.0); %Monocytes 8.9 % (0.0-10.0); Hemoglobin 7.8 g/dL (12.0-16.0); Mean Corpuscular HGB CONC 34.5 g/dL (32.0-36.0); Mean Corpuscular Hemoglobin 30.8 pg (27.0-31.0); Mean Corpuscular Volume 89.3 fL (78.0-98.0); Mean Platelet Volume 8.7 fL (7.4-10.4); Platelet Count 271 thou/uL (130-400); RBC Distribution Width 15.1 % (11.5-14.5); Red Blood Cell (RBC) Count 2.53 mill/uL (4.20-5.40); White Blood Cell (WBC) Count 11.8 thou/uL (4.8-10.8)
[2021-09-25 05:01] LABS: ALT (SGPT) 24 U/L (8-55); AST (SGOT) 18 U/L (5-34); Albumin 3.2 g/dL (3.4-4.8); Alkaline Phosphatase 90 U/L (40-110); Anion Gap 11 mmol/L (10-20); BUN (Urea Nitrogen) 42 mg/dL (9.8-20.1); Bilirubin, Total 0.3 mg/dL (0.2-1.2); Calc. Creatinine Clearance 19 mL/min (70-130); Calcium 11.8 mg/dL (7.8-10.44); Carbon Dioxide 21 mmol/L (23-31); Chloride 107 mmol/L (98-107); Globulin 2.9 g/dL (2.4-3.5); Glucose 85 mg/dL (83-110); Potassium 3.2 mmol/L (3.5-5.1); Protein, Total 6.1 g/dL (5.8-8.1); Sodium 136 mmol/L (136-145)
[2021-09-25] MEDS: Sodium Chloride 0.9% 1,000 ML IV SCH ×2 (06:07→16:00)
[2021-09-25 06:27] LABS: Magnesium 1.7 mg/dL (1.6-2.6)
[2021-09-25] MEDS: NIFEdipine XL 90 MG TAB PO SCH (09:21)
[2021-09-25] MEDS: Furosemide 20 MG/2 ML VIAL SLOW IVP SCH (09:21)
[2021-09-25] MEDS: Senokot S 8.6-50 MG TAB PO SCH ×2 (09:21→21:08)
[2021-09-25] MEDS: predniSONE 20 MG TAB PO SCH (09:22)
[2021-09-25] MEDS: Heparin 5,000 UNITS/ML VIAL SC SCH ×3 (09:22→21:08)
[2021-09-25] MEDS ORDERED: Magnesium 2 GM/50 ML 2 GM in Premix Bag 1 BAG IVPB SCH (11:15)
[2021-09-25] MEDS ORDERED: Potassium Phosphate 9 MMOL in Sodium Chloride 0.9% 100 ML IVPB SCH (12:00)
[2021-09-25] MEDS: hydrALAZINE 10 MG TAB PO SCH ×2 (15:59→21:08)
[2021-09-25] MEDS ORDERED: Insulin Regular 300 UNITS/3 ML VIAL SC PRN (18:45)
[2021-09-25] MEDS: HumaLOG 300 UNITS/3 ML VIAL SC PRN ×2 (19:14→21:09)
[2021-09-25] MEDS: Latanoprost 0.005% Ophth Soln 2.5 ml Bottle EA EYE SCH (21:07)
[2021-09-26] MEDS: Sodium Chloride 0.9% 1,000 ML IV SCH ×4 (00:53→18:34)
[2021-09-26] MEDS: Acetaminophen 325 MG TAB PO PRN (02:47)
[2021-09-26] MEDS: hydrALAZINE 20 MG/ML VIAL SLOW IVP PRN (05:01)
[2021-09-26 05:52] LABS: #Eosinphils 0.1 thou/uL (0.0-0.7); #Lymphocytes 1.2 thou/uL (1.20-3.40); #Monocytes 1.1 thou/uL (0.11-0.59); #Neutrophils 8.5 thou/uL (1.40-6.50); %Basophils 0.3 % (0.0-1.0); %Eosinophils 0.8 % (0.0-10.0); %Monocytes 9.7 % (0.0-10.0); %Neutrophils 78.3 % (42.0-75.0); Mean Corpuscular HGB CONC 34.7 g/dL (32.0-36.0); Mean Corpuscular Hemoglobin 31.3 pg (27.0-31.0); Mean Corpuscular Volume 90.3 fL (78.0-98.0); Mean Platelet Volume 9.2 fL (7.4-10.4); Platelet Count 258 thou/uL (130-400); RBC Distribution Width 15.2 % (11.5-14.5); Red Blood Cell (RBC) Count 2.54 mill/uL (4.20-5.40); White Blood Cell (WBC) Count 10.9 thou/uL (4.8-10.8)
[2021-09-26 07:18] LABS: Phosphorus 2.6 mg/dL (2.3-4.7)
[2021-09-26 08:10] LABS: AST (SGOT) 17 U/L (5-34); Albumin 3.1 g/dL (3.4-4.8); Alkaline Phosphatase 88 U/L (40-110); Anion Gap 13 mmol/L (10-20); BUN (Urea Nitrogen) 37 mg/dL (9.8-20.1); Bilirubin, Total 0.4 mg/dL (0.2-1.2); Calc. Creatinine Clearance 20 mL/min (70-130); Chloride 106 mmol/L (98-107); Potassium 3.1 mmol/L (3.5-5.1); Protein, Total 6.1 g/dL (5.8-8.1); Sodium 133 mmol/L (136-145)
[2021-09-26 08:17] LABS: Carbon Dioxide 17 mmol/L (23-31)
[2021-09-26 08:18] LABS: ALT (SGPT) 22 U/L (8-55); Glucose 56 mg/dL (83-110)
[2021-09-26] MEDS ORDERED: Potassium Chloride 20 MEQ TAB PO SCH (08:45)
[2021-09-26] MEDS: predniSONE 20 MG TAB PO SCH (09:13)
[2021-09-26] MEDS: hydrALAZINE 10 MG TAB PO SCH ×3 (09:13→21:21)
[2021-09-26] MEDS: NIFEdipine XL 90 MG TAB PO SCH (09:13)
[2021-09-26] MEDS: Senokot S 8.6-50 MG TAB PO SCH ×2 (09:13→21:21)
[2021-09-26] MEDS: Furosemide 20 MG/2 ML VIAL SLOW IVP SCH (09:13)
[2021-09-26] MEDS: Heparin 5,000 UNITS/ML VIAL SC SCH ×3 (09:13→21:21)
[2021-09-26] MEDS: HumaLOG 300 UNITS/3 ML VIAL SC PRN ×2 (12:17→22:30)
[2021-09-27] MEDS: Acetaminophen 325 MG TAB PO PRN ×2 (01:27→08:35)
[2021-09-27] MEDS: Latanoprost 0.005% Ophth Soln 2.5 ml Bottle EA EYE SCH ×2 (02:29→21:26)
[2021-09-27 07:08] LABS: Phosphorus 2.8 mg/dL (2.3-4.7)
[2021-09-27 07:11] LABS: ALT (SGPT) 17 U/L (8-55); AST (SGOT) 12 U/L (5-34); Albumin 2.9 g/dL (3.4-4.8); Alkaline Phosphatase 74 U/L (40-110); Anion Gap 10 mmol/L (10-20); BUN (Urea Nitrogen) 35 mg/dL (9.8-20.1); Bilirubin, Total 0.3 mg/dL (0.2-1.2); Calc. Creatinine Clearance 16 mL/min (70-130); Calcium 9.9 mg/dL (7.8-10.44); Carbon Dioxide 20 mmol/L (23-31); Chloride 109 mmol/L (98-107); Globulin 2.5 g/dL (2.4-3.5); Glucose 85 mg/dL (83-110); Magnesium 1.5 mg/dL (1.6-2.6); Potassium 3.2 mmol/L (3.5-5.1); Protein, Total 5.4 g/dL (5.8-8.1); Sodium 136 mmol/L (136-145)
[2021-09-27] MEDS: Sodium Chloride 0.9% 1,000 ML IV SCH (07:41)
[2021-09-27] MEDS ORDERED: Potassium Chloride 20 MEQ TAB PO SCH ×2 (08:15→08:45)
[2021-09-27] MEDS ORDERED: Magnesium 2 GM/50 ML 2 GM in Premix Bag 1 BAG IVPB SCH (08:30)
[2021-09-27] MEDS: Heparin 5,000 UNITS/ML VIAL SC SCH ×3 (08:32→21:24)
[2021-09-27] MEDS: Senokot S 8.6-50 MG TAB PO SCH ×2 (08:33→21:26)
[2021-09-27] MEDS: NIFEdipine XL 90 MG TAB PO SCH (08:33)
[2021-09-27] MEDS: hydrALAZINE 10 MG TAB PO SCH (08:34)
[2021-09-27] MEDS: predniSONE 20 MG TAB PO SCH (08:34)
[2021-09-27] MEDS ORDERED: hydrALAZINE 10 MG TAB PO SCH (09:15)
[2021-09-27] MEDS: hydrALAZINE 25 MG TAB PO SCH ×2 (15:45→21:25)
[2021-09-27] MEDS: HumaLOG 300 UNITS/3 ML VIAL SC PRN ×2 (18:10→21:26)
[2021-09-28 06:27] LABS: #Eosinphils 0.1 thou/uL (0.0-0.7); #Lymphocytes 1.4 thou/uL (1.20-3.40); #Neutrophils 7.4 thou/uL (1.40-6.50); %Basophils 0.3 % (0.0-1.0); %Eosinophils 0.8 % (0.0-10.0); %Lymphocytes 13.9 % (21.0-51.0); Hemoglobin 7.7 g/dL (12.0-16.0); Mean Corpuscular HGB CONC 33.8 g/dL (32.0-36.0); Mean Corpuscular Hemoglobin 30.7 pg (27.0-31.0); Mean Corpuscular Volume 90.7 fL (78.0-98.0); Mean Platelet Volume 8.3 fL (7.4-10.4); Platelet Count 271 thou/uL (130-400); RBC Distribution Width 15.7 % (11.5-14.5); Red Blood Cell (RBC) Count 2.51 mill/uL (4.20-5.40); White Blood Cell (WBC) Count 9.9 thou/uL (4.8-10.8)
[2021-09-28 06:52] LABS: ALT (SGPT) 18 U/L (8-55); AST (SGOT) 14 U/L (5-34); Alkaline Phosphatase 79 U/L (40-110); Anion Gap 8 mmol/L (10-20); BUN (Urea Nitrogen) 33 mg/dL (9.8-20.1); Bilirubin, Total 0.3 mg/dL (0.2-1.2); Calc. Creatinine Clearance 18 mL/min (70-130); Calcium 10.2 mg/dL (7.8-10.44); Carbon Dioxide 22 mmol/L (23-31); Chloride 111 mmol/L (98-107); Globulin 2.8 g/dL (2.4-3.5); Glucose 76 mg/dL (83-110); Magnesium 1.8 mg/dL (1.6-2.6); Potassium 3.7 mmol/L (3.5-5.1); Protein, Total 5.8 g/dL (5.8-8.1); Sodium 137 mmol/L (136-145)
[2021-09-28] MEDS: Heparin 5,000 UNITS/ML VIAL SC SCH ×3 (08:55→20:59)
[2021-09-28] MEDS: hydrALAZINE 25 MG TAB PO SCH ×3 (08:55→20:59)
[2021-09-28] MEDS: NIFEdipine XL 90 MG TAB PO SCH (08:56)
[2021-09-28] MEDS: Senokot S 8.6-50 MG TAB PO SCH ×2 (08:56→20:59)
[2021-09-28] MEDS: predniSONE 20 MG TAB PO SCH (09:08)
[2021-09-28 12:21] LABS: SARS-CoV-2 PCR by NAA Not Detected (NotDetected)
[2021-09-28 12:27] LABS: Iron 91 ug/dL (50-170); Iron Binding Capacity, Total 189 mcg/dL (265-497)
[2021-09-28 12:53] LABS: Ferritin 1521.74 ng/mL (10-291)
[2021-09-28] MEDS: HumaLOG 300 UNITS/3 ML VIAL SC PRN (16:10)
[2021-09-28] MEDS: Latanoprost 0.005% Ophth Soln 2.5 ml Bottle EA EYE SCH (20:58)
[2021-09-29 05:43] LABS: ALT (SGPT) 18 U/L (8-55); AST (SGOT) 15 U/L (5-34); Albumin 3.2 g/dL (3.4-4.8); Alkaline Phosphatase 82 U/L (40-110); Anion Gap 11 mmol/L (10-20); BUN (Urea Nitrogen) 38 mg/dL (9.8-20.1); Bilirubin, Total 0.3 mg/dL (0.2-1.2); Calc. Creatinine Clearance 16 mL/min (70-130); Calcium 10.7 mg/dL (7.8-10.44); Carbon Dioxide 21 mmol/L (23-31); Chloride 110 mmol/L (98-107); Globulin 2.9 g/dL (2.4-3.5); Glucose 96 mg/dL (83-110); Potassium 3.9 mmol/L (3.5-5.1); Protein, Total 6.1 g/dL (5.8-8.1); Sodium 138 mmol/L (136-145)
[2021-09-29] MEDS: NIFEdipine XL 90 MG TAB PO SCH (09:15)
[2021-09-29] MEDS: hydrALAZINE 25 MG TAB PO SCH ×3 (09:15→21:09)
[2021-09-29] MEDS ORDERED: Epoetin (ESRD) 20,000 UNITS/ML SC SCH (09:15)
[2021-09-29] MEDS: Heparin 5,000 UNITS/ML VIAL SC SCH ×3 (09:16→21:12)
[2021-09-29] MEDS: predniSONE 20 MG TAB PO SCH (09:16)
[2021-09-29] MEDS: Senokot S 8.6-50 MG TAB PO SCH ×2 (09:16→21:12)
[2021-09-29] MEDS ORDERED: Melatonin 3 MG TAB PO PRN (10:04)
[2021-09-29] MEDS ORDERED: EPOETIN ALFA-EPBX (ESRD) 4,000 UNIT/ML VIAL SC SCH (12:00)
[2021-09-29] MEDS: HumaLOG 300 UNITS/3 ML VIAL SC PRN ×2 (12:04→17:16)
[2021-09-29] MEDS: Acetaminophen 325 MG TAB PO PRN ×2 (13:47→23:19)
[2021-09-29 16:11] LABS: Hemoglobin 8.4 g/dL (12.0-16.0)
[2021-09-29] MEDS: Latanoprost 0.005% Ophth Soln 2.5 ml Bottle EA EYE SCH (21:12)
[2021-09-30 06:29] LABS: INR-International Normal Ratio 1.1; Prothrombin Time 13.9 sec (12.0-14.7)
[2021-09-30 06:32] LABS: PTT 111.2 sec (22.9-36.1)
[2021-09-30 06:46] LABS: ALT (SGPT) 19 U/L (8-55); AST (SGOT) 14 U/L (5-34); Albumin 3.2 g/dL (3.4-4.8); Alkaline Phosphatase 81 U/L (40-110); BUN (Urea Nitrogen) 34 mg/dL (9.8-20.1); Bilirubin, Total 0.3 mg/dL (0.2-1.2); Calc. Creatinine Clearance 15 mL/min (70-130); Calcium 10.5 mg/dL (7.8-10.44); Carbon Dioxide 22 mmol/L (23-31); Globulin 2.8 g/dL (2.4-3.5); Glucose 147 mg/dL (83-110)
[2021-09-30 06:55] LABS: Anion Gap 13 mmol/L (10-20); Chloride 107 mmol/L (98-107); Potassium 3.2 mmol/L (3.5-5.1); Sodium 137 mmol/L (136-145)
[2021-09-30] MEDS: Heparin 5,000 UNITS/ML VIAL SC SCH ×3 (09:07→14:39)
[2021-09-30] MEDS: NIFEdipine XL 90 MG TAB PO SCH (09:15)
[2021-09-30] MEDS: Senokot S 8.6-50 MG TAB PO SCH ×2 (09:15→21:20)
[2021-09-30] MEDS: hydrALAZINE 25 MG TAB PO SCH ×3 (09:15→21:21)
[2021-09-30] MEDS: predniSONE 20 MG TAB PO SCH (09:16)
[2021-09-30] MEDS ORDERED: Potassium Chloride 20 MEQ TAB PO SCH (10:15)
[2021-09-30] MEDS ORDERED: Lactated Ringer's 1,000 ML IV SCH (11:00)
[2021-09-30 11:03] LABS: SARS-CoV-2 PCR by NAA Not Detected (NotDetected)
[2021-09-30 13:08] VITALS: BMI 19.9
[2021-09-30] MEDS: HumaLOG 300 UNITS/3 ML VIAL SC PRN ×2 (13:15→17:55)
[2021-09-30] MEDS: Acetaminophen 325 MG TAB PO PRN ×2 (13:22→21:22)
[2021-09-30] MEDS: Melatonin 3 MG TAB PO SCH (21:21)
[2021-09-30] MEDS: Latanoprost 0.005% Ophth Soln 2.5 ml Bottle EA EYE SCH (21:21)
[2021-10-01] MEDS: hydrALAZINE 25 MG TAB PO SCH ×3 (08:20→20:05)
[2021-10-01] MEDS: Senokot S 8.6-50 MG TAB PO SCH ×2 (08:20→20:04)
[2021-10-01] MEDS: predniSONE 20 MG TAB PO SCH (08:21)
[2021-10-01] MEDS: NIFEdipine XL 90 MG TAB PO SCH (09:13)
[2021-10-01] MEDS ORDERED: hydrALAZINE 10 MG TAB PO SCH (11:45)
[2021-10-01 12:48] LABS: #Eosinphils 0.2 thou/uL (0.0-0.7); #Lymphocytes 0.9 thou/uL (1.20-3.40); #Monocytes 0.4 thou/uL (0.11-0.59); #Neutrophils 9.3 thou/uL (1.40-6.50); %Basophils 0.2 % (0.0-1.0); %Eosinophils 1.5 % (0.0-10.0); %Monocytes 3.6 % (0.0-10.0); %Neutrophils 86.7 % (42.0-75.0); Hemoglobin 7.9 g/dL (12.0-16.0); Mean Corpuscular HGB CONC 34.3 g/dL (32.0-36.0); Mean Corpuscular Volume 90.1 fL (78.0-98.0); Mean Platelet Volume 8.1 fL (7.4-10.4); Platelet Count 284 thou/uL (130-400); RBC Distribution Width 16.4 % (11.5-14.5); Red Blood Cell (RBC) Count 2.56 mill/uL (4.20-5.40); White Blood Cell (WBC) Count 10.7 thou/uL (4.8-10.8)
[2021-10-01 13:00] LABS: Prothrombin Time 13.1 sec (12.0-14.7)
[2021-10-01] MEDS ORDERED: hydrALAZINE 25 MG TAB PO SCH (13:00)
[2021-10-01 13:01] LABS: PTT 40.4 sec (22.9-36.1)
[2021-10-01 13:20] LABS: ALT (SGPT) 25 U/L (8-55); AST (SGOT) 18 U/L (5-34); Albumin 3.5 g/dL (3.4-4.8); Alkaline Phosphatase 85 U/L (40-110); Anion Gap 12 mmol/L (10-20); BUN (Urea Nitrogen) 34 mg/dL (9.8-20.1); Bilirubin, Total 0.4 mg/dL (0.2-1.2); Calc. Creatinine Clearance 17 mL/min (70-130); Calcium 10.9 mg/dL (7.8-10.44); Carbon Dioxide 22 mmol/L (23-31); Chloride 108 mmol/L (98-107); Globulin 3.1 g/dL (2.4-3.5); Glucose 127 mg/dL (83-110); Potassium 3.7 mmol/L (3.5-5.1); Protein, Total 6.6 g/dL (5.8-8.1); Sodium 138 mmol/L (136-145)
[2021-10-01] MEDS: Melatonin 3 MG TAB PO SCH (20:04)
[2021-10-01] MEDS: Latanoprost 0.005% Ophth Soln 2.5 ml Bottle EA EYE SCH (20:05)
[2021-10-01] MEDS: Acetaminophen 325 MG TAB PO PRN (20:05)
[2021-10-02] MEDS: hydrALAZINE 25 MG TAB PO SCH ×4 (02:20→21:04)
[2021-10-02] MEDS: Acetaminophen 325 MG TAB PO PRN (02:21)
[2021-10-02 07:14] LABS: #Basophils 0.1 thou/uL (0.0-0.2); #Eosinphils 0.2 thou/uL (0.0-0.7); #Lymphocytes 1.3 thou/uL (1.20-3.40); #Monocytes 0.8 thou/uL (0.11-0.59); #Neutrophils 7.5 thou/uL (1.40-6.50); %Basophils 0.6 % (0.0-1.0); %Eosinophils 1.6 % (0.0-10.0); %Lymphocytes 13.6 % (21.0-51.0); %Neutrophils 76.1 % (42.0-75.0); Hemoglobin 7.8 g/dL (12.0-16.0); Mean Corpuscular HGB CONC 33.5 g/dL (32.0-36.0); Mean Corpuscular Hemoglobin 30.8 pg (27.0-31.0); Mean Corpuscular Volume 91.8 fL (78.0-98.0); Mean Platelet Volume 8.4 fL (7.4-10.4); Platelet Count 287 thou/uL (130-400); RBC Distribution Width 16.5 % (11.5-14.5); Red Blood Cell (RBC) Count 2.55 mill/uL (4.20-5.40); White Blood Cell (WBC) Count 9.9 thou/uL (4.8-10.8)
[2021-10-02 07:37] LABS: ALT (SGPT) 20 U/L (8-55); AST (SGOT) 16 U/L (5-34); Albumin 3.1 g/dL (3.4-4.8); Alkaline Phosphatase 80 U/L (40-110); Anion Gap 12 mmol/L (10-20); BUN (Urea Nitrogen) 32 mg/dL (9.8-20.1); Bilirubin, Total 0.3 mg/dL (0.2-1.2); Calc. Creatinine Clearance 17 mL/min (70-130); Calcium 10.4 mg/dL (7.8-10.44); Carbon Dioxide 23 mmol/L (23-31); Chloride 110 mmol/L (98-107); Globulin 2.9 g/dL (2.4-3.5); Glucose 88 mg/dL (83-110); Potassium 3.2 mmol/L (3.5-5.1); Sodium 142 mmol/L (136-145)
[2021-10-02] MEDS: predniSONE 20 MG TAB PO SCH (08:02)
[2021-10-02] MEDS: Senokot S 8.6-50 MG TAB PO SCH ×2 (08:03→21:07)
[2021-10-02] MEDS: NIFEdipine XL 90 MG TAB PO SCH (08:03)
[2021-10-02] MEDS ORDERED: Potassium Chloride 20 MEQ TAB PO SCH (10:15)
[2021-10-02] MEDS ORDERED: Midazolam HCl 2 mg/2 ml Vial ONE (11:01)
[2021-10-02] MEDS ORDERED: Sodium Bicarbonate 2.5 MEQ/5 ML VIAL ONE (11:02)
[2021-10-02] MEDS ORDERED: Fentanyl 100 MCG/2 ML VIAL ONE (11:02)
[2021-10-02] MEDS: HumaLOG 300 UNITS/3 ML VIAL SC PRN (17:31)
[2021-10-02] MEDS: Latanoprost 0.005% Ophth Soln 2.5 ml Bottle EA EYE SCH (21:04)
[2021-10-02] MEDS: Melatonin 3 MG TAB PO SCH (21:06)
[2021-10-03] MEDS: Acetaminophen 325 MG TAB PO PRN (00:14)
[2021-10-03] MEDS: hydrALAZINE 25 MG TAB PO SCH ×3 (03:41→15:06)
[2021-10-03 07:24] LABS: ALT (SGPT) 18 U/L (8-55); AST (SGOT) 14 U/L (5-34); Albumin 3.1 g/dL (3.4-4.8); Alkaline Phosphatase 74 U/L (40-110); Anion Gap 12 mmol/L (10-20); BUN (Urea Nitrogen) 24 mg/dL (9.8-20.1); Bilirubin, Total 0.4 mg/dL (0.2-1.2); Calc. Creatinine Clearance 18 mL/min (70-130); Calcium 10.1 mg/dL (7.8-10.44); Carbon Dioxide 21 mmol/L (23-31); Chloride 108 mmol/L (98-107); Globulin 2.8 g/dL (2.4-3.5); Glucose 86 mg/dL (83-110); Potassium 3.7 mmol/L (3.5-5.1); Protein, Total 5.9 g/dL (5.8-8.1); Sodium 137 mmol/L (136-145)
[2021-10-03] MEDS: predniSONE 20 MG TAB PO SCH (08:58)
[2021-10-03] MEDS: Heparin 5,000 UNITS/ML VIAL SC SCH ×2 (08:59→15:07)
[2021-10-03] MEDS: Senokot S 8.6-50 MG TAB PO SCH (08:59)
[2021-10-03] MEDS: NIFEdipine XL 90 MG TAB PO SCH (08:59)
[2021-10-03 16:19] VITALS: BP 124/54; TEMP 98
== END 2021-10-03 17:15 | disposition home health service (06) | DRG 196 ==
LOC: ERS 10:08 → IMCU/EMU 12:36 → 2NO 09-11 15:04 → SURG B 09-26 14:32 → T4-A 09-30 18:24
PROVIDERS: ADMIT Student in an Organized Health Care Education/Training Program; ATTEND Student in an Organized Health Care Education/Training Program
DX: D86.9 Sarcoidosis, unspecified (principal); G93.41 Metabolic encephalopathy; N17.9 Acute kidney failure, unspecified; R64 Cachexia; Z68.1 Body mass index [BMI] 19.9 or less, adult; E46 Unspecified protein-calorie malnutrition; Z20.822 Contact with and (suspected) exposure to COVID-19; E11.22 Type 2 diabetes mellitus with diabetic chronic kidney disease; I12.9 Hypertensive chronic kidney disease with stage 1 through stage 4 chronic kidney disease, or unspecified chronic kidney disease; N18.30 Chronic kidney disease, stage 3 unspecified; E83.52 Hypercalcemia; F03.90 Unspecified dementia, unspecified severity, without behavioral disturbance, psychotic disturbance, mood disturbance, and anxiety; E87.6 Hypokalemia; E83.42 Hypomagnesemia; D63.1 Anemia in chronic kidney disease; E21.3 Hyperparathyroidism, unspecified; E11.29 Type 2 diabetes mellitus with other diabetic kidney complication; E83.39 Other disorders of phosphorus metabolism; Z79.899 Other long term (current) drug therapy; Z90.710 Acquired absence of both cervix and uterus; Z90.49 Acquired absence of other specified parts of digestive tract; Z82.49 Family history of ischemic heart disease and other diseases of the circulatory system
CPT/HCPCS: 36415; 36416; 51701; 70450; 71045; 71250; 74177; 74183; 80048; 80053; 80306; 80307; 81003; 81015; 82164; 82274; 82306; 82340; 82378; 82550; 82553; 82607; 82652; 82728; 82746; 83540; 83550; 83605; 83735; 83970; 84100; 84165; 84166; 84443; 84484; 84540; 85007; 85014; 85018; 85025; 85027; 85060; 85610; 85730; 86304; 86480; 87040; 87086; 88184; 88185; 93005; 96372; A9579; J0360; J0630; J1644; J1815; J1940; J2250; J3010; J3475; J3480; J3489; J3490; J7050; J7120; J7512; P9047; Q5105; U0002; U0003; U0005